=== PATIENT | male | born 1940 | race Caucasian/White ===

== ENCOUNTER → 2016-10-15 | Outpatient (CLI) | payer MEDICARE, BC | END | disposition home or self-care (01) | LOC: LABPAT 15:14 | PROVIDERS: ATTEND Orthopaedic Surgery | DX: Z01.812 Encounter for preprocedural laboratory examination (principal) | CPT/HCPCS: 87070 ==

== ENCOUNTER 2016-10-20 05:47 | Inpatient (IN) | payer MEDICARE, BC ==
--- NOTE | 2016-10-19 14:43 | HP ---
Surgery scheduled for 10/20/2016. Farhad Lott is a 76-year-old patient seen with symptomatic left hip osteoarthritis. After having treatment options discussed, he elected to proceed with direct anterior left total hip arthroplasty. Consent was obtained. Medical clearance was provided by Dr. Torres. PAST MEDICAL HISTORY: Hypertension. PAST SURGICAL HISTORY: Noncontributory. DAILY MEDICATIONS: Clonidine. ALLERGIES: None. SOCIAL HISTORY: Patient denies tobacco use. PHYSICAL EVALUATION OF THE LEFT HIP: There is very limited range of motion and severe pain. Diffuse weakness about the hip girdle. Diffuse tenderness about the hip girdle. Positive hip impingement sign. Distal neurovascular exam is intact. The left lower extremity is approximately 1 1/2 inches shorter than the right. Radiographs of the left hip reveal severe osteoarthritic changes. IMPRESSION: Left hip osteoarthritis. PLAN: Direct anterior left total hip arthroplasty. DANDY
[~2016-10-20 05:47] MED LIST: ACETAMINOPHEN TAB 500 MG TAB PO ONE; MELOXICAM 7.5 MG TAB PO ONE; Pre Op ABX Message 1 EACH MISC MISCELLANE ONE; TRANEXAMIC ACID 1,000 MG in SODIUM CHLORIDE 0.9% 100 ML IVPB ONE; ceFAZolin 2 GM in SODIUM CHLORIDE 0.9% 100 ML IVPB ONE
[2016-10-20] MEDS ORDERED: LACTATED RINGERS 1,000 ML IV SCH (06:32)
[2016-10-20] MEDS ORDERED: HYDROmorphone 1 MG/ML 1 ML SYRINGE IVP PRN ×4 (06:32→09:29)
[2016-10-20] MEDS ORDERED: ONDANSETRON 4 MG/2 ML VIAL IVP ONE (06:32)
[2016-10-20] MEDS ORDERED: DEXAMETHASONE SOD PHOSPHATE 10 MG/ML 1 ML VIAL IV ONE (06:32)
[2016-10-20] MEDS ORDERED: LIDOCAINE 1% 20 ML VIAL (10MG/ML) FOR IV START INTRADERMA ONE (06:49)
[2016-10-20] MEDS ORDERED: ROPIVACAINE 246.25 MG, EPINEPHrine 0.5 MG, KETOROLAC 30 MG, cloNIDine HCL/PF 80 MCG, WA... MISCELLANE ONE ×5 (07:19)
[2016-10-20] MEDS ORDERED: MIDAZOLAM 2 MG/2 ML VIAL ONE (07:22)
[2016-10-20] MEDS ORDERED: SODIUM CHLORIDE 0.9% 100 ML BAG ONE (07:22)
[2016-10-20] MEDS ORDERED: LIDOCAINE 1% INJ 10MG/ML (20 ML MDV) ONE (07:22)
[2016-10-20] MEDS ORDERED: TRANEXAMIC ACID 1,000 MG/10 ML VIAL ONE (07:22)
[2016-10-20] MEDS ORDERED: ceFAZolin 3,000 MG in SODIUM CHLORIDE 0.9% IRRIGATIO 3,000 ML IRRIGATION ONE (07:22)
[2016-10-20] MEDS ORDERED: PROPOFOL 10 MG/ML 20 ML VIAL IV ONE (07:22)
[2016-10-20] MEDS ORDERED: ePHEDrine SULFATE/0.9% NACL/PF 50 MG/5 ML SYRINGE IV ONE (07:22)
[2016-10-20] MEDS ORDERED: LACTATED RINGERS 1,000 ML IV ONE (09:17)
[2016-10-20] MEDS ORDERED: ONDANSETRON 4 MG/2 ML VIAL IVP PRN (09:29)
[2016-10-20] MEDS ORDERED: NALOXONE 0.4 MG/ML 1 ML VIAL IV PRN (09:29)
[2016-10-20] MEDS ORDERED: HYDROcodone/APAP 7.5-325MG 1 EACH TAB PO PRN (09:29)
[2016-10-20] MEDS ORDERED: hydrOXYzine PAMOATE 25 MG CAP PO PRN (09:29)
--- NOTE | 2016-10-20 09:29 | P.OP ---
Date of Procedure: 10/20/16 Preoperative Diagnosis: Left hip osteoarthritis Postoperative Diagnosis: Left hip osteoarthritis Procedure(s) Performed: Direct anterior left total hip arthroplasty Implants: 1. Depuy Corail cementless femoral stem K a size 14 standard collar 2. Depuy pinnacle acetabular shell multi hole 56 mm press-fit 3. Depuy polyethylene acetabular liner +4 neutral 36 mm ID 56 mm OD 4. Biolox delta ceramic femoral head +1.5 36 mm Anesthesia: local, spinal Surgeon: Juan Quiroga Web Content Producer #1: Frantz Garcia Estimated Blood Loss (ml): 200 Pathology: other (Femoral head) Condition: stable Disposition: PACU Indications for Procedure: 76-year-old patient seen with synthetic left hip osteoarthritis. After treatment options were discussed, he elected to proceed with total hip arthroplasty. Operative Findings: See description of procedure Description of Procedure: The patient was taken to the operative suite. Patient underwent a final anesthetic by the department of anesthesia. Patient was then transferred to the [place] table. Patient was given preoperative IV antibiotics and TXA. Both lower extremities were placed in standard leg spars. The hip was then prepped and draped in the normal sterile orthopedic fashion. A standard anterior incision was made beginning 3 cm lateral and 1 cm distal to the ASIS extending 10 cm. Dissection was then carried down through the subcutaneous soft tissues down to the fascia overlying the tensor fascia edna. An incision was now made through the fascia. Careful dissection was taken down exposing the tensor fascia edna muscle. A Cobra retractor was now placed along the medial femoral neck and a second one along the lateral femoral neck. The venous circumflex vessels were now identified, cauterized and clipped. We identified the anterior hip capsule. An incision was made through the hip capsule along the lateral border. Tag sutures were then placed along the anterior capsule and lateral capsule. We then performed a capsulotomy. Retractors were now placed around the femoral neck itself. A Cobra retractor was now placed along the anterior acetabulum. Good exposure was now noted of the femoral head/neck complex. Residual labrum was debrided out. We placed the extremity into 3 turns of fine traction. We were then able to introduce a skid in between the femoral head and acetabulum. A placed a awl into the femoral head. We took 2 turns of traction off the extremity. Rotation was now released. The femoral head was then dislocated without difficulty. Additional releasing was performed of the capsule. The head was then reduced. All traction was released. A femoral neck cut was now made with a sagittal saw. It was completed with an osteotome at the lateral neck area. The femoral head was now removed without difficulty. The extremity was now rotated to 60 of external rotation. It was locked in position. Residual labrum was now debrided out. Serial reaming was performed of the acetabulum. Once we reached the appropriate size and a trial was position and fit nicely. The appropriate size was now chosen opened and made available. The wound was irrigated with pulse lavage mechanical irrigation. The acetabular cup was introduced into the acetabulum without difficulty. The C-arm/fluoroscopy was now brought into the operative field. We made sure we had a true AP pelvic view. We now under direct C-arm/fluoroscopy introduced into the acetabular component with appropriate version and inclination. It was well seated and stable. I did insert one screw to enhance the stability. The C-arm was pulled back. An appropriate liner was introduced and clicked into position. It was felt to be stable. At this point retractors were removed. The extremity was now placed into 120 external rotation with no traction. The leg was now dropped to the ground and adducted. Appropriate retractors were now positioned along the proximal femur. We also placed our femoral look into position. Additional capsular releasing was performed to gain access to the proximal femur. We now used a box osteotome. A canal finder was now utilized. Serial broaching was now performed until we reached the appropriate size with good overall rotational stability. Appropriate calcar planing was performed. A trial head/ neck was placed into position. The hip was now reduced. The C-arm/fluoroscopy was brought back into the operative field. A spot film was obtained of the nonoperative hip. A spot film was obtained of the trial components. Overlays were performed, we noted good overall alignment and positioning for determining leg length. The C-arm/fluoroscopy was pulled back. Retractors were repositioned and the hip was dislocated. The leg was again taken down to the ground and adducted. Appropriate retractors were repositioned as well as the femoral hook. All trial components were removed. The wound was irrigated with pulse lavage mechanical irrigation. The femoral implant was opened along with the femoral head. The femoral implant was introduced with good purchase and fixation noted. The femoral head was introduced with good positioning and fixation noted. Retractors were now removed. The hip was now reduced. There appeared be good positioning of the hip. Spot films were obtained to document this. Bipolar cautery had been utilized intermittently through the procedure for hemostasis. The wound was irrigated copiously with pulse lavage mechanical irrigation. A second gram of TXA was given. The fascia was repaired with Vicryl suture. The subcutaneous soft tissues were repaired in layers with Vicryl suture. The skin was approximated with pernio/Dermabond. Sterile dressings were applied. Patient was then awakened, transferred to a bed and taken to recovery in stable condition. Bi ZAVALA assisted with the procedure.
--- NOTE | 2016-10-20 10:52 | XR ---
Limited left hip HISTORY: Open reduction internal fixation Intraoperative C-arm image documents the procedure
--- NOTE | 2016-10-20 10:53 | FL ---
Fluoroscopy HISTORY: Hip replacement 51 seconds fluoroscopy time supplied to the referring clinician. 1 intraoperative C-arm images docum ent the procedure. See dictated report from orthopedic surgery.
[2016-10-20 10:58] VITALS: BMI 22.6
[2016-10-20] MEDS: LACTATED RINGERS 1,000 ML IV SCH (11:02)
[2016-10-20] MEDS: HYDROcodone/APAP 7.5-325MG 1 EACH TAB PO PRN ×2 (11:43→18:57)
[2016-10-20] MEDS: traMADol 50 MG TAB PO SCH ×3 (12:36→21:40)
[2016-10-20] MEDS: ceFAZolin 2 GM in SODIUM CHLORIDE 0.9% 100 ML IVPB SCH (15:25)
[2016-10-20] MEDS ORDERED: SENNOSIDES-DOCUSATE SODIUM 1 EACH TAB PO SCH (21:00)
[2016-10-21] MEDS: ceFAZolin 2 GM in SODIUM CHLORIDE 0.9% 100 ML IVPB SCH (00:07)
--- NOTE | 2016-10-21 01:46 | P.CONS ---
History of Present Illness - Reason for Consult Consult date: 10/20/16 Medical management of hypertension and other medical problems - Chief Complaint Status post left total hip arthroplasty - History of Present Illness Patient is a 76-year-old male with a known history of hypertension, gout and osteoarthritis was admitted to the hospital for elective left total hip arthroplasty. Patient underwent procedure well. Currently denied any complaints of chest pain or short of breath. patient was able to ablate it walk this morning. Review of Systems CONSTITUTIONAL: No fever, no malaise, no fatigue. HEENT: No recent visual problems or hearing problems. Denied any sore throat. CARDIOVASCULAR: No chest pain, orthopnea, PND, no palpitations, no syncope. PULMONARY: , no hemoptysis. GASTROINTESTINAL: No diarrhea, no nausea, no vomiting, no abdominal pain. Normoactive bowel sounds. NEUROLOGICAL: No headaches, no weakness, no numbness. HEMATOLOGICAL: Denies any bleeding or petechiae. GENITOURINARY: Denies any burning micturition, frequency, or urgency. MUSCULOSKELETAL/RHEUMATOLOGICAL: Denies any joint pain, swelling, or any muscle pain. ENDOCRINE: Denies any polyuria or polydipsia. The rest of the 14-point review of systems is negative. Past Medical History Past Medical History: CVA/TIA, Hypertension, Renal Disease Additional Past Medical History / Comment(s): HISTORY OF KIDNEY CANCER, RIGHT KIDNEY REMOVED, GOUT History of Any Multi-Drug Resistant Organisms: None Reported Additional Past Surgical History / Comment(s): RIGHT NEPHRECTOMY Past Anesthesia/Blood Transfusion Reactions: No Reported Reaction Past Psychological History: No Psychological Hx Reported Smoking Status: Never smoker - Past Family History Father Family Medical History: CVA/TIA Medications and Allergies Home Medications Medication Instructions Recorded Confirmed Type Atenolol/Chlorthalidone [Tenoretic 1 tab PO DAILY 10/20/16 10/20/16 History 50 Tablet] Colchicine 0.6 mg PO DAILY PRN 10/20/16 10/20/16 History Allergies Allergy/AdvReac Type Severity Reaction Status Date / Time No Known Allergies Allergy Verified 10/20/16 10:59 Physical Exam Vitals: Vital Signs Temp Pulse Pulse Pulse Resp BP Pulse Ox 10/20/16 14:26 97.5 F L 65 16 147/95 96 10/20/16 12:34 98.1 F 65 16 166/91 99 10/20/16 12:30 65 16 148/91 98 10/20/16 12:15 54 L 16 152/87 98 10/20/16 12:00 62 16 172/103 97 10/20/16 11:45 58 L 16 164/97 96 10/20/16 11:30 52 L 16 174/98 97 10/20/16 11:15 55 L 16 171/88 97 10/20/16 11:02 55 L 16 177/81 97 10/20/16 10:45 98 F 54 L 16 154/88 97 10/20/16 10:35 58 L 16 126/55 97 10/20/16 10:18 58 L 16 136/79 97 10/20/16 10:02 60 16 136/75 96 10/20/16 09:47 97 F L 60 16 136/76 96 10/20/16 06:28 97.8 F 55 L 16 189/102 Intake and Output 10/20/16 10/20/16 10/20/16 06:59 14:59 22:59 Intake Total 100 1256 Output Total 520 Balance 100 736 Intake: IV 100 1256 Lactated Ringers 1,000 ml 200 @ 50 mls/hr IV .Q20H [facility] Rx#:[id number] Output: Urine 320 Estimated Blood Loss 200 Other: Voiding Method Indwelling Catheter Weight 73.8 kg 73.8 kg Patient Weight 10/21/16 06:59 Weight 73.8 kg PHYSICAL EXAMINATION: Patient is lying in the bed comfortably, no acute distress , awake alert and oriented.. HEENT: Normocephalic. Neck is supple. Pupils reactive. Nostrils clear. Oral cavity is moist. Ears reveal no drainage. Neck reveals no JVD, carotid bruits, or thyromegaly. CHEST EXAMINATION: Trachea is central. Symmetrical expansion. Lung quijano clear to auscultation and percussion. CARDIAC: Normal S1, S2 with no gallops. No murmurs ABDOMEN: Soft. Bowel sounds normal. No organomegaly. No abdominal bruits. Extremities reveal no edema. Left hip wound is intact no bleeding noted Neurologically awake, alert, oriented x3 with well-coordinated movements. Assessment and Plan Plan: #1 status post left hip arthroplasty postop day 0 #2 hypertension. Controlled. Patient takes hydrochlorothiazide and atenolol at home #3 gout stable when necessary colchicine 4 DVT prophylaxis Plan: Patient will be continued on pain management and bowel regimen. Incentive spirometry and ambulation. Continue with the due to reflexes. Blood pressure medications can be started from tomorrow. We will check CBC and a BMP tomorrow morning and further recommendations based on the clinical course.
[2016-10-21] MEDS: HYDROcodone/APAP 7.5-325MG 1 EACH TAB PO PRN ×2 (05:39→14:38)
[2016-10-21] MEDS: LACTATED RINGERS 1,000 ML IV SCH (07:28)
[2016-10-21 07:40] VITALS: BP 135/75; PULSE 60; RESP 20; TEMP 97
[2016-10-21] MEDS: traMADol 50 MG TAB PO SCH ×2 (08:12→12:20)
[2016-10-21 08:39] LABS: Basophils # (A) 0.1 k/uL (0-0.2); Basophils % (A) 1 %; CH 32.4; CHCM 34.6; Eosinophils # (A) 0.1 k/uL (0-0.7); Eosinophils % (A) 1 %; HCT 39.5 % (39.0-53.0); HDW 2.74; HGB 13.1 gm/dL (13.0-17.5); Luc % (Auto) 2; Lymphocytes % (A) 18 %; MCH 31.3 pg (25.0-35.0); MCHC 33.2 g/dL (31.0-37.0); MCV 94.3 fL (80.0-100.0); Mean Platelet Volume 7.5; Monocytes # (A) 0.6 k/uL (0-1.0); Monocytes % (A) 6 %; Neutrophils # (A) 7.9 k/uL (1.3-7.7); Neutrophils % (A) 73 %; RBC 4.19 m/uL (4.30-5.90); RDW 14.3 % (11.5-15.5); WBC 10.9 k/uL (3.8-10.6)
[2016-10-21] MEDS ORDERED: ENOXAPARIN 40 MG/0.4 ML SYRINGE SQ SCH (09:00)
[2016-10-21] MEDS ORDERED: FAMOTIDINE 20 MG TAB PO SCH (09:00)
[2016-10-21 09:14] LABS: Potassium 3.8 mmol/L (3.5-5.1)
--- NOTE | 2016-10-21 11:03 | P.PN ---
Subjective Principal diagnosis: Status post left total hip arthroplasty Patient is seen today resting in his hospital chair, he appears to be in no acute distress. His pain is well-controlled. He is ambulating well with physical therapy. Urinary catheters been discontinued. He denies any headaches , lightheadedness, chest pain, shortness of breath. Objective - Vital Signs Vital signs: Vital Signs Temp 97.0 F L 10/21/16 07:00 Pulse 60 10/21/16 07:00 Resp 20 10/21/16 07:00 BP 135/75 10/21/16 07:00 Pulse Ox 97 10/21/16 07:00 Intake & Output 10/20/16 10/21/16 10/21/16 18:59 06:59 18:59 Intake Total 1256 700 Output Total 520 1200 Balance 736 700 -1200 Weight 73.8 kg Intake: IV 1256 500 Lactated Ringers 1,000 ml 200 500 @ 50 mls/hr IV .Q20H [facility] Rx#:[id number] Intake, IV Titration 200 Amount ceFAZolin 2 gm In Sodium 200 Chloride 0.9% 100 ml @ 100 mls/hr IVPB Q8HR [facility] Rx#:[id number] Output: Urine 320 1200 Estimated Blood Loss 200 Other: Voiding Method Indwelling Catheter Indwelling Catheter Indwelling Catheter - Exam Left lower extremity: Incision is clean, dry, and intact. Minimal soft tissue swelling present in the hip. Calf soft, no tenderness with palpation. Plantar flexion, dorsiflexion, EHL, FHL are intact. Sensory exam to light touch throughout the leg is intact, dorsal pedis pulses 2+. - Labs CBC & Chem 7: 10/21/16 08:05 10/21/16 08:05 Labs: Abnormal Lab Results - Last 24 Hours (Table) 10/21/16 10/21/16 Range/Units 08:05 08:05 WBC 10.9 H (3.8-10.6) k/uL RBC 4.19 L (4.30-5.90) m/uL Neutrophils # 7.9 H (1.3-7.7) k/uL BUN 37 H (9-20) mg/dL Creatinine 1.86 H (0.66-1.25) mg/dL Assessment and Plan Plan: Assessment: 1. Postop day #1 status post left total hip arthroplasty Plan: 1. Pain control, continue use of current medication 2. Continue work therapy 3. Daily dressing changes 4. GI and DVT prophylaxis, continue subcu medication during inpatient stay 5. Medical recommendations 6. Discharge planning: Patient will be discharged home today Time with Patient: Less than 30
--- NOTE | 2016-10-21 11:07 | P.DS ---
Providers Date of admission: 10/20/16 05:47 Expected date of discharge: 10/21/16 Attending physician: Juan Quiroga Consults: 10/20/16 09:29 Consult Physician Routine Consulting Provider: Ismael Torres Reason/Comments: Medical management Do you want consulting provider notified?: Yes 10/20/16 10:31 Consult Physician Routine Consulting Provider: Joshua Cullen Consult Reason/Comments: Medical Management Do you want consulting provider notified?: Yes Primary care physician: Ismael Torres Hospital Course: Date of admission: 10/20/2016 Date of discharge: 10/21/2016 Admission diagnosis: Status post left total hip arthroplasty Discharge diagnosis: Same Attending physician: Dr. Quiroga Surgical procedures: Left total hip arthroplasty Brief history: Patient is a 76-year-old male with a history of progressive primary left hip osteoarthritis. At this point patient has failed conservative treatment measures and has opted to proceed with a elective left total hip arthroplasty. Hospital course: Details of patient's surgery can be found in operative report. Patient tolerated the procedure well and was subsequently transported to orthopedic floor. Patient's orthopeidc and medical care was provided daily. Patient had daily laboratory tests performed for evaluation of overall blood counts. Patient had daily physical therapy to include strengthening range of motion as well as education with walker ambulation. Patient was treated with Lovenox for their postoperative DVT prophylaxis during their inpatient stay. Patient was noted to have a relatively uneventful postoperative course. Patient reported satisfactory pain control with oral pain medications by postoperative day 0. Patient showed satisfactory progress with physical therapy. Patient moved steadily through the program and had no difficulty meeting the goals by postoperative day 1. Given patient's otherwise satisfactory course and having met physical therapy goals, plan is to discharge patient [home] on postoperative day 1. Discharge condition/disposition: Patient will be discharged [home] in stable condition. Discharge medications: Instructions are given on resumption of patient's normal daily medications per primary care recommendation, in addition patient will be prescribed [place] 7.5 mg/325 mg, Pepcid 20 mg, Colace 100 mg, aspirin 325 mg. Discharge instructions: 1. Wound care and infection precautions, [keep incision dry and covered while showering], no lotions, creams, moisturizers. No soaking, tubs, pools, hottubs. Do not scrub over the incision. 2. Weight-bear [as tolerated] with walker / cane until follow-up. 3. Ice and elevate when necessary. Do not exceed 20 minutes per hour with ice pack. 4. Utilize compression sleeve until seen at first follow up appointment. 5. Visiting nursing care. 6. Home physical therapy. 7. Pain meds and anticoagulants per prescription. 8. Pain medication has potential to cause constipation. Increase oral fluid and fiber intake. Contact primary care provider if you have not had a bowel movement within 48 hours after discharge 9. No anti-inflammatory medication until discussed at first post operative visit, this including Motrin, Aleve, Mobic, Diclofenac. 10. Follow up in office at 2 weeks postop with Washington Garcia PA-C 11. Follow up with your primary care doctor 7-10 days after discharge. 12. Contact [facility] with any questions, . Procedures: Left total hip arthroplasty Patient Condition at Discharge: Good Plan - Discharge Summary New Discharge Prescriptions: New Aspirin 325 mg PO BID #60 tab Docusate [Colace] 100 mg PO DAILY #30 capsule Famotidine [Pepcid] 20 mg PO DAILY #30 tablet HYDROcodone/APAP 7.5-325MG [[place] 7.5] 1 - 2 each PO Q6HR PRN #60 tab PRN Reason: Pain No Action Atenolol/Chlorthalidone [Tenoretic 50 Tablet] 1 tab PO DAILY Colchicine 0.6 mg PO DAILY PRN PRN Reason: gout symptoms Discharge Medication List Atenolol/Chlorthalidone [Tenoretic 50 Tablet] 1 tab PO DAILY 10/20/16 [History] Colchicine 0.6 mg PO DAILY PRN 10/20/16 [History] Aspirin 325 mg PO BID #60 tab 10/21/16 [Rx] Docusate [Colace] 100 mg PO DAILY #30 capsule 10/21/16 [Rx] Famotidine [Pepcid] 20 mg PO DAILY #30 tablet 10/21/16 [Rx] HYDROcodone/APAP 7.5-325MG [[place] 7.5] 1 - 2 each PO Q6HR PRN #60 tab 10/21/16 [ Rx] Follow up Appointment(s)/Referral(s): Frantz Garcia PAC [PHYSICIAN CERTIFIED PROFESSIONAL CODER] - 2 Weeks Activity/Diet/Wound Care/Special Instructions: Orthopedic Discharge Instructions: 1. Wound care and infection precautions, keep incision dry and covered while showering, no lotions, creams, moisturizers. No soaking, pools, hot tubs. Do not scrub over incision. 2. Weight-bear as tolerated with walker / cane until follow-up. 3. Ice and elevate when necessary. Do not exceed 20 minutes per hour with ice pack. 4. Utilize compression sleeve until seen at first follow up appointment. 5. Visiting nursing care. 6. Home physical therapy. 7. Pain meds and anticoagulants per prescription. 8. Pain medication has potential to cause constipation. Increase oral fluid and fiber intake. Contact primary care provider if you have not had a bowel movement within 48 hours after discharge. 9. No anti-inflammatory medication until discussed at first post operative visit, this including Motrin, Aleve, Mobic, Diclofenac. 10. Follow up in office at 2 weeks postop with Washington Garcia PA-C 11. Follow up with your primary care doctor 7-10 days after discharge. 12. Contact [facility] with any questions, . Discharge Disposition: HOME WITH HOME HEALTH SERVICES
[2016-10-21] MEDS ORDERED: MULTIVITAMINS, THERA 1 EACH TAB PO SCH (12:00)
--- NOTE | 2016-10-21 21:55 | P.PN ---
Subjective Principal diagnosis: Status post left total hip arthroplasty Patient is a 76-year-old male with a known history of hypertension, gout and osteoarthritis was admitted to the hospital for elective left total hip arthroplasty. Patient underwent procedure well. Currently denied any complaints of chest pain or short of breath. patient was able to ablate it walk this morning. Patient denied any complaints of chest pain or short of breath today. No acute overnight issues. Patient is on minimal support. Patient is being discharged home today. No fever no chills. Objective - Vital Signs Vital signs: Vital Signs Temp 97.0 F L 10/21/16 07:00 Pulse 60 10/21/16 07:00 Resp 20 10/21/16 07:00 BP 135/75 10/21/16 07:00 Pulse Ox 97 10/21/16 07:00 Intake & Output 10/21/16 10/21/16 10/22/16 06:59 18:59 06:59 Intake Total 700 Output Total 1700 Balance 700 -1700 Intake: IV 500 Lactated Ringers 1,000 ml 500 @ 50 mls/hr IV .Q20H [facility] Rx#:[id number] Intake, IV Titration 200 Amount ceFAZolin 2 gm In Sodium 200 Chloride 0.9% 100 ml @ 100 mls/hr IVPB Q8HR [facility] Rx#:[id number] Output: Urine 1700 Other: Voiding Method Indwelling Catheter Indwelling Catheter - Exam PHYSICAL EXAMINATION: Patient is lying in the bed comfortably, no acute distress , awake alert and oriented.. HEENT: Normocephalic. Neck is supple. Pupils reactive. Nostrils clear. Oral cavity is moist. Ears reveal no drainage. Neck reveals no JVD, carotid bruits, or thyromegaly. CHEST EXAMINATION: Trachea is central. Symmetrical expansion. Lung quijano clear to auscultation and percussion. CARDIAC: Normal S1, S2 with no gallops. No murmurs ABDOMEN: Soft. Bowel sounds normal. No organomegaly. No abdominal bruits. Extremities reveal no edema. Neurologically awake, alert, oriented x3 with well-coordinated movements. - Labs CBC & Chem 7: 10/21/16 08:05 10/21/16 08:05 Labs: Abnormal Lab Results - Last 24 Hours (Table) 10/21/16 10/21/16 Range/Units 08:05 08:05 WBC 10.9 H (3.8-10.6) k/uL RBC 4.19 L (4.30-5.90) m/uL Neutrophils # 7.9 H (1.3-7.7) k/uL BUN 37 H (9-20) mg/dL Creatinine 1.86 H (0.66-1.25) mg/dL Assessment and Plan Plan: #1 status post left hip arthroplasty postop day 1 #2 hypertension. Controlled. Patient takes hydrochlorothiazide and atenolol at home #3 gout stable when necessary colchicine 4 DVT prophylaxis Plan: Patient will be continued on pain management and bowel regimen. Incentive spirometry and ambulation. Continue with the due to reflexes. Blood pressure medications can be started upon discharge. Patient is stable to be discharged home
== END 2016-10-21 14:40 | disposition home health service (06) | DRG 470 ==
LOC: 2ORMAIN 05:47 → 3SUR 09:57
PROVIDERS: ADMIT Orthopaedic Surgery; ATTEND Orthopaedic Surgery
PROC: 0SRB04A Replacement of Left Hip Joint with Ceramic on Polyethylene Synthetic Substitute, Uncemented, Open Approach (ICD-10-PCS; principal; 2016-10-20 07:30)
DX: M16.12 Unilateral primary osteoarthritis, left hip (principal); I10 Essential (primary) hypertension; M10.9 Gout, unspecified; R53.1 Weakness; Z85.528 Personal history of other malignant neoplasm of kidney; Z86.73 Personal history of transient ischemic attack (TIA), and cerebral infarction without residual deficits; Z79.899 Other long term (current) drug therapy; Z82.3 Family history of stroke; Z90.5 Acquired absence of kidney; Z87.448 Personal history of other diseases of urinary system
CPT/HCPCS: 73501; 80048; 85025; 86850; 86900; 86901; 88300

== ENCOUNTER → 2018-03-26 | Outpatient (CLI) | payer MEDICARE, BC ==
[2018-03-26 13:45] LABS: Basophils # (A) 0.1 k/uL (0-0.2); Basophils % (A) 1 %; Eosinophils # (A) 0.2 k/uL (0-0.7); Eosinophils % (A) 3 %; HCT 49.9 % (39.0-53.0); HGB 16.2 gm/dL (13.0-17.5); Lymphocytes # (A) 1.8 k/uL (1.0-4.8); Lymphocytes % (A) 25 %; MCH 30.1 pg (25.0-35.0); MCHC 32.4 g/dL (31.0-37.0); Mean Platelet Volume 6.3; Monocytes # (A) 0.4 k/uL (0-1.0); Monocytes % (A) 5 %; Neutrophils # (A) 4.6 k/uL (1.3-7.7); Neutrophils % (A) 65 %; Platelet Count 253 k/uL (150-450); RBC 5.37 m/uL (4.30-5.90); RDW 13.4 % (11.5-15.5); WBC 7.2 k/uL (3.8-10.6)
[2018-03-26 13:57] LABS: Prothrombin Time 11.1 sec (9.0-12.0)
[2018-03-26 13:59] LABS: Potassium 4.7 mmol/L (3.5-5.1)
== END | disposition home or self-care (01) ==
LOC: LABPAT 13:09
PROVIDERS: ATTEND Orthopaedic Surgery
DX: Z01.818 Encounter for other preprocedural examination (principal)
CPT/HCPCS: 80051; 85025; 85610; 87070; 93005

== ENCOUNTER → 2018-04-13 | Outpatient (CLI) | payer MEDICARE, BC | END | disposition home or self-care (01) | LOC: LABPAT 08:11 | PROVIDERS: ATTEND Orthopaedic Surgery | DX: Z01.812 Encounter for preprocedural laboratory examination (principal) | CPT/HCPCS: 36415; 86850; 86900; 86901 ==

== ENCOUNTER 2018-04-19 10:05 | Inpatient (IN) | payer MEDICARE, BC ==
--- NOTE | 2018-04-18 14:18 | HP ---
HISTORY AND PHYSICAL DATE OF SERVICE: 04/19/2018 HISTORY OF PRESENT ILLNESS: Farhad Lott is a 77-year-old patient seen with symptomatic right hip osteoarthritis. We discussed options. He elected to proceed with right total hip arthroplasty. Consent obtained. Medical clearance was provided by Dr. Ismael Torres. PAST MEDICAL HISTORY: Hypertension. PAST SURGICAL HISTORY: Left total hip arthroplasty. MEDICATIONS: Clonidine. ALLERGIES: None reported. SOCIAL HISTORY: He denies tobacco use. PHYSICAL EXAMINATION: Evaluation of the right hip, there is limited range of motion with severe pain. Positive hip impingement sign. Straight leg raise negative. Distal neurovascular exam is intact. RADIOGRAPHS: Radiographs of the right hip revealed moderate to severe osteoarthritic changes. IMPRESSION: 1. Right hip osteoarthritis. 2. Hypertension. PLAN: Direct anterior right total hip arthroplasty. Surgery scheduled 04/19/2018. MMODL / IJN: [id number] /
[~2018-04-19 10:05] MED LIST changes: -ACETAMINOPHEN TAB 500 MG TAB PO ONE; +HYDROmorphone 0.5 MG/0.5 ML SYRINGE IVP PRN; +LIDOCAINE 1% 20 ML VIAL (10MG/ML) FOR IV START INTRADERMA PRN; -MELOXICAM 7.5 MG TAB PO ONE; -Pre Op ABX Message 1 EACH MISC MISCELLANE ONE; +TRANEXAMIC ACID 1,000 MG in SODIUM CHLORIDE 0.9% 50 ML IVPB ONE; -ceFAZolin 2 GM in SODIUM CHLORIDE 0.9% 100 ML IVPB ONE; +ceFAZolin IN SWFI 2 GM/20 ML SYRINGE IVP ONE
[2018-04-19] MEDS: LACTATED RINGERS 1,000 ML IV SCH ×3 (11:07→16:04)
[2018-04-19] MEDS ORDERED: hydrALAZINE HCL 20 MG/ML 1 ML VIAL IVP ONE ×2 (11:15→11:37)
[2018-04-19] MEDS: MELOXICAM 7.5 MG TAB PO ONE ×2 (11:21→15:57)
[2018-04-19] MEDS: ONDANSETRON 4 MG/2 ML VIAL IVP ONE ×2 (11:21→15:58)
[2018-04-19] MEDS: ACETAMINOPHEN TAB 500 MG TAB PO ONE ×2 (11:22→15:57)
[2018-04-19] MEDS ORDERED: ROPIVACAINE 246.25 MG, EPINEPHrine 0.5 MG, KETOROLAC 30 MG, cloNIDine HCL/PF 80 MCG, WA... MISCELLANE ONE ×5 (12:04)
[2018-04-19] MEDS ORDERED: TRANEXAMIC ACID 1,000 MG/10 ML VIAL ONE (12:44)
[2018-04-19] MEDS ORDERED: fentaNYL (PF) 50 MCG/ML 2 ML AMP ONE (12:44)
[2018-04-19] MEDS ORDERED: MIDAZOLAM 2 MG/2 ML VIAL ONE (12:44)
[2018-04-19] MEDS ORDERED: SODIUM CHLORIDE 0.9% 100 ML BAG ONE (12:44)
[2018-04-19] MEDS ORDERED: PROPOFOL 10 MG/ML 20 ML VIAL IV ONE (12:44)
[2018-04-19] MEDS ORDERED: ceFAZolin 3,000 MG in SODIUM CHLORIDE 0.9% IRRIGATIO 3,000 ML IRRIGATION ONE (13:23)
[2018-04-19] MEDS ORDERED: LACTATED RINGERS 1,000 ML IV ONE (13:55)
[2018-04-19] MEDS ORDERED: ONDANSETRON 4 MG/2 ML VIAL IVP PRN (14:37)
[2018-04-19] MEDS ORDERED: HYDROmorphone 0.5 MG/0.5 ML SYRINGE IVP PRN ×3 (14:37)
[2018-04-19] MEDS ORDERED: NALOXONE 0.4 MG/ML 1 ML VIAL IV PRN (14:37)
[2018-04-19] MEDS ORDERED: traMADol 50 MG TAB PO PRN (14:37)
--- NOTE | 2018-04-19 14:37 | P.OP ---
Date of Procedure: 04/19/18 Preoperative Diagnosis: Right hip osteoarthritis Postoperative Diagnosis: Right hip osteoarthritis Procedure(s) Performed: Direct anterior right total hip arthroplasty Implants: 1. Depuy Corail KA size 13 standard collar press-fit femoral stem 2. Depuy pinnacle acetabular shell multi hole 56 mm press-fit 3. Depuy pinnacle polyethylene acetabular liner neutral 36 mm ID 56 mm OD 4. Biolox delta ceramic femoral head 36 mm +1.5 Anesthesia: local, spinal Surgeon: Juan Quiroga Tube Wrapper #1: Frantz Garcia Estimated Blood Loss (ml): 500 Pathology: none sent (Femoral head) Condition: stable Disposition: PACU Indications for Procedure: 77-year-old patient seen with symptomatic right hip osteoarthritis. After treatment options were discussed, he elected to proceed with right total hip arthroplasty. Operative Findings: See description of procedure Description of Procedure: The patient was taken to the operative suite. Patient underwent a spinal anesthetic by the department of anesthesia. Patient was then transferred to the [place] table. Patient was given preoperative IV antibiotics and TXA. Both lower extremities were placed in standard leg spars. The hip was then prepped and draped in the normal sterile orthopedic fashion. A standard anterior incision was made beginning 3 cm lateral and 1 cm distal to the ASIS extending 10 cm. Dissection was then carried down through the subcutaneous soft tissues down to the fascia overlying the tensor fascia edna. An incision was now made through the fascia. Careful dissection was taken down exposing the tensor fascia edna muscle. A Cobra retractor was now placed along the medial femoral neck and a second one along the lateral femoral neck. The venous circumflex vessels were now identified, cauterized and clipped. We identified the anterior hip capsule. An incision was made through the hip capsule along the lateral border. I performed a partial anterior capsulectomy. Retractors were now placed around the femoral neck itself. A femoral neck cut was now made with a sagittal saw. It was completed with an osteotome at the lateral neck area. The femoral head was now removed without difficulty. The extremity was now rotated to 45 of external rotation. It was locked in position. Residual labrum was now debrided out. Serial reaming was performed of the acetabulum while Washington ZAVALA assisted holding an anterior retractor for exposure. Once we reached the appropriate size and a trial was position and fit nicely. The appropriate size was now chosen opened and made available. It was introduced into the acetabulum without difficulty. The C-arm/fluoroscopy was now brought into the operative field. We made sure we had a true AP pelvic view. We now under direct C-arm/fluoroscopy introduced into the acetabular component with appropriate version and inclination. I held the cup in appropriate position well Washington ZAVALA used a mallet to seat the acetabular component. I noted the component now to be well seated and stable. Acetabular cup introduce her was removed. The C-arm was pulled back. An appropriate liner was introduced and clicked into position. It was felt to be stable. At this point retractors were removed. The extremity was now placed into 120 external rotation with no traction. The leg was now dropped to the ground and adducted. Appropriate retractors were now positioned along the proximal femur. We also placed our femoral look into position. Additional capsular releasing was performed to gain access to the proximal femur. We now used a box osteotome. A canal finder was now utilized. Serial broaching was now performed with the assistance of Washington ZAVALA tapping the broaches down with a mallet while held the broach in appropriate rotation and position. This was done until we reached the appropriate size with good overall rotational stability. Appropriate calcar planing was performed. A trial head/neck was placed into position. The hip was now reduced. The C-arm/fluoroscopy was brought back into the operative field. A spot film was obtained of the nonoperative hip. A spot film was obtained of the trial components. Overlays were performed, we noted good overall alignment and positioning for determining leg length. The C- arm/fluoroscopy was pulled back. Retractors were repositioned and the hip was dislocated. The leg was again taken down to the ground and adducted. Appropriate retractors were repositioned as well as the femoral hook. All trial components were removed. The femoral implant was opened along with the femoral head. The femoral implant was introduced on the appropriate handle into our pre-broached area. I held the component position well Washington ZAVALA used a mallet to seat the femoral component. The femoral component was now noted to be well seated and stable.. The femoral head was introduced with good positioning and fixation noted. Retractors were now removed. The hip was now reduced. There appeared be good positioning of the hip confirmed on intraoperative fluoroscopy. Spot films were obtained to document this. A second gram of TXA was given. The deep and superficial soft tissues were infiltrated with local analgesic. Bipolar cautery had been utilized intermittently through the procedure for hemostasis. The wound was irrigated copiously with pulse lavage mechanical irrigation. The fascia was repaired with Vicryl suture. The subcutaneous soft tissues were repaired in layers with Vicryl suture. The skin was approximated with pernio/Dermabond. Sterile dressings were applied. Patient was then awakened, transferred to a bed and taken to recovery in stable condition. Washington ZAVALA assisted with the complex procedure.
--- NOTE | 2018-04-19 16:24 | P.CONS ---
History of Present Illness - Reason for Consult Consult date: 04/19/18 Consult for medical management of hypertension Requesting physician: Juan Quiroga - Chief Complaint Consult for medical management of hypertension - History of Present Illness The patient is a 77-year-old male with a past medical history of essential hypertension osteoarthritis and gout who presented and was admitted under orthopedic service and is postop day #0 status post right total hip arthroplasty secondary to severe right hip osteoarthritis. The patient reports that despite having a history of hypertension that he's been off any antihypertensive regimen in the last couple years, he denies any ongoing issues with chest pain, he denies any shortness of breath, denies headache or blurry vision. The patient reports he went his PCP to have preop clearance and that his blood pressures have been elevated at times. He currently denies any pain in his hip, denies any nausea vomiting or abdominal pain. Review of records indicates the patient has been hypertensive as high as 160/ 83. He is currently receiving LR at 80 mL an hour and is on perioperative antibiotics with cefazolin has been is currently being managed with Dilaudid and hydrocodone \ Review of Systems Pertinent positive as per HPI all other review of systems otherwise negative Past Medical History Past Medical History: Cancer, CVA/TIA, Hypertension, Prostate Disorder, Renal Disease Additional Past Medical History / Comment(s): HISTORY OF KIDNEY,bladder and prostate CANCER, GOUT, TIA 3 yrs ago-no residual effects, History of Any Multi-Drug Resistant Organisms: None Reported Past Surgical History: Joint Replacement, Prostate Surgery Additional Past Surgical History / Comment(s): RIGHT NEPHRECTOMY, left hip replacement, bladder removed for cancer/neobladder Past Anesthesia/Blood Transfusion Reactions: No Reported Reaction Smoking Status: Never smoker - Past Family History Father Family Medical History: CVA/TIA Mother Family Medical History: Cancer Medications and Allergies Home Medications Medication Instructions Recorded Confirmed Type No Known Home Medications 04/07/18 04/19/18 History Allergies Allergy/AdvReac Type Severity Reaction Status Date / Time No Known Allergies Allergy Verified 04/19/18 15:19 Physical Exam Vitals: Vital Signs Temp Pulse Pulse Resp BP BP Pulse Ox 04/19/18 15:23 67 16 157/60 98 04/19/18 15:15 61 16 157/83 99 04/19/18 15:00 67 16 160/83 98 04/19/18 14:47 97.2 F L 68 16 136/78 99 04/19/18 11:46 163/90 04/19/18 11:30 183/108 04/19/18 11:10 98.9 F 63 16 198/109 208/108 96 04/19/18 10:57 223/125 Intake and Output 04/19/18 04/19/18 04/19/18 06:59 14:59 22:59 Intake Total 1401 200 Output Total 500 Balance 901 200 Intake: IV 1401 200 Output: Estimated Blood Loss 500 Constitutional: No acute distress, conversant, pleasant Eyes: Anicteric sclerae, moist conjunctiva, no lid-lag, PERRLA ENMT: NC/AT,Oropharynx clear, no erythema, exudates Neck:Supple, FROM, no masses, or JVD, No carotid bruits; No thyromegaly Lungs: Clear to auscultation, Clear to percussion, Normal respiratory effort, no accessory muscle use Cardiovascular: Heart regular in rate and rhythm, No murmurs, gallops, or rubs no peripheral edema Abdominal: Soft Nontender, nom distended, no guarding, no rebound or rigidity, Normoactive bowel sounds No hepatomegaly, No splenomegaly, No palpable mass No abdominal wall hernia noted Skin: Normal temperature, tone, texture, turgor, No induration No subcutaneous nodules, No rash, lesions, No ulcers Extremities:No digital cyanosis No clubbing, Pedal pulses intact and symmetrical Radial pulses intact and symmetrical Normal gait and station, No calf tenderness, lateral right hip bandaged mild soft tissue swelling, dressing clean dry and intact Psychiatric: Alert and oriented to person, place and time, Appropriate affect Intact judgement Neuro: Muscles Strength 5/5 in all 4 extremities, Sensation to light touch grossly present throughout, Cranial nerves II-XII grossly intact. No focal sensory deficits Assessment and Plan (1) Essential hypertension Current Visit: Yes Status: Acute Code(s): I10 - ESSENTIAL (PRIMARY) HYPERTENSION SNOMED Code(s): 49855017 (2) Gout Current Visit: Yes Status: Acute Code(s): M10.9 - GOUT, UNSPECIFIED SNOMED Code(s): 17975857 (3) Osteoarthritis Current Visit: Yes Status: Acute Code(s): M19.90 - UNSPECIFIED OSTEOARTHRITIS, UNSPECIFIED SITE SNOMED Code(s): 208068704 (4) S/P total hip arthroplasty Current Visit: Yes Status: Acute Code(s): Z96.649 - PRESENCE OF UNSPECIFIED ARTIFICIAL HIP JOINT SNOMED Code(s): 079129398166 Plan: The patient is admitted to primary orthopedic service and is status post right hip total arthroplasty secondary to severe right hip osteoarthritis patient has a history of essential hypertension and his blood pressure is elevated today. He reports not being on any antihypertensive for the last couple years. We'll start the patient on hydrochlorothiazide 25 mg by mouth daily and continue to monitor his blood pressures. I will defer analgesic management to primary orthopedic service. We'll continue to follow his clinical course I Appreciate opportunity to be involved in ongoing care of this patient. Further questions or concerns please don't hesitate to contact the sound inpatient team CODE STATUS Full code Discussed plan of care with patient Anticipated discharge 1 day Time with Patient: Less than 30
--- NOTE | 2018-04-19 16:39 | FL ---
Fluoroscopy HISTORY: Anterior hip replacement 6 seconds fluoroscopy time supplied to the referring clinician. 1 intraoperative C-arm images docume nt the procedure. See dictated report from orthopedic surgery.
[2018-04-19 16:41] VITALS: BMI 21.2
--- NOTE | 2018-04-19 16:45 | XR ---
Right hip HISTORY: Status post right hip arthroplasty Intraoperative C-arm image documents the procedure.
[2018-04-19] MEDS: HYDROCHLOROTHIAZIDE 25 MG TAB PO SCH (16:51)
[2018-04-19] MEDS: HYDROcodone/APAP 5-325MG 1 EACH TAB PO PRN (18:34)
[2018-04-19] MEDS: ceFAZolin IN SWFI 2 GM/20 ML SYRINGE IVP SCH (20:04)
[2018-04-19] MEDS: SENNOSIDES-DOCUSATE SODIUM 1 EACH TAB PO SCH (20:04)
[2018-04-20] MEDS: HYDROcodone/APAP 5-325MG 1 EACH TAB PO PRN ×5 (02:24→23:12)
[2018-04-20] MEDS: ceFAZolin IN SWFI 2 GM/20 ML SYRINGE IVP SCH (05:30)
[2018-04-20] MEDS: FAMOTIDINE 20 MG TAB PO SCH (07:43)
[2018-04-20] MEDS: MELOXICAM 7.5 MG TAB PO SCH (07:43)
[2018-04-20] MEDS: HYDROCHLOROTHIAZIDE 25 MG TAB PO SCH (07:44)
[2018-04-20] MEDS: ENOXAPARIN 40 MG/0.4 ML SYRINGE SQ SCH (07:44)
[2018-04-20 07:57] LABS: Basophils % (A) 0 %; Eosinophils # (A) 0.1 k/uL (0-0.7); Eosinophils % (A) 1 %; HCT 42.5 % (39.0-53.0); Lymphocytes % (A) 10 %; MCH 30.8 pg (25.0-35.0); MCHC 32.9 g/dL (31.0-37.0); MCV 93.8 fL (80.0-100.0); Mean Platelet Volume 6.4; Monocytes # (A) 0.6 k/uL (0-1.0); Monocytes % (A) 7 %; Neutrophils # (A) 7.5 k/uL (1.3-7.7); Neutrophils % (A) 81 %; Platelet Count 203 k/uL (150-450); RBC 4.53 m/uL (4.30-5.90); RDW 13.2 % (11.5-15.5); WBC 9.3 k/uL (3.8-10.6)
--- NOTE | 2018-04-20 09:59 | P.PN ---
Subjective Progress Note Date: 04/20/18 Principal diagnosis: follow up for blood pressure management post Right RODRIGUE patient seen and examined, no new complaints, denies any headache chest pain trouble breathing. Tolerated by mouth intake. Passing urine. Patient reports constipation for the past 3 days. Patient reports pain is well controlled and tolerated over the right hip. Objective - Vital Signs Vital signs: Vital Signs Temp 98.4 F 04/20/18 07:00 Pulse 73 04/20/18 07:00 Resp 16 04/20/18 07:00 BP 122/77 04/20/18 07:00 Pulse Ox 96 04/20/18 07:00 Intake & Output 04/19/18 04/20/18 04/20/18 18:59 06:59 18:59 Intake Total 1601 1430 Output Total 500 Balance 1101 1430 Intake: IV 1601 Intake, IV Titration 700 Amount Lactated Ringers 1,000 ml 700 @ 70 mls/hr IV .[id number] OMAR Rx#:[id number] Oral 730 Output: Estimated Blood Loss 500 Other: # Voids 2 - Exam Constitutional: vital signs stable, Not in acute distress, pleasant, conversant Lungs: Clear to auscultation bilaterally, clear to percussion, normal respiratory effort no use of accessory muscles Cardiovascular: Regular rate and rhythm, no murmurs, no gallops, no rubs, no peripheral edema Gastrointestinal: Soft, no tenderness to palpation, no palpable hepatosplenomegally, bowel sounds positive, no abdominal wall hernias Extremities: No digital cyanosis or clubbing, peripheral pulses palpable and equal over bilateral radial arteries and dorsalis pedis artery, no calf muscle tenderness. Surgical dressing over right anterior groin and hip area clean dry and intact no ecchymosis or bruising no drainage. Distal pulses are palpable and strong over bilateral dorsalis pedal arteries Psych: Alert, oriented to place, person and time, appropriate affect, intact judgment - Labs CBC & Chem 7: 04/20/18 07:18 Assessment and Plan Assessment: 37-year-old male presented for elective right total hip arthroplasty tolerated procedure well medicine consulted for management of hypertension, patient has been diagnosed with hypertension and past however he quit taking medications due to financial reasons. He's been trying to control his blood pressure with dietary controlled Plan: Right degenerative joint disease in the hip, postoperative day 1 Tolerated procedure well Pain control and DVT prophylaxis per orthopedic recommendations Await PT/OT Hypertension, uncontrolled untreated Patient doesn't take medications due to financial reasons Patient was started on hydrochlorothiazide 25 mg daily seems like The blood pressure under better control today Recommendations is to continue hydrochlorothiazide upon discharge prescription was sent to the pharmacy. Recommendations for the patient follow up outpatient with PCP and to monitor his blood pressure regularly DVT prophylaxis per orthopedics Labs reviewed, hemoglobin stable postoperatively Patient is stable from internal medicine standpoint for discharge Thank you for allowing us the opportunity to perspective in the care of this patient
[2018-04-20] MEDS: LACTATED RINGERS 1,000 ML IV SCH ×2 (12:49→18:47)
--- NOTE | 2018-04-20 15:29 | P.PN ---
Subjective Progress Note Date: 04/20/18 Principal diagnosis: Status post right total hip arthroplasty Patient evaluated today at bedside, family is present. He is ambulating well with therapy. Denies any shortness of breath or chest pain. Objective - Vital Signs Vital signs: Vital Signs Temp 98.4 F 04/20/18 07:00 Pulse 73 04/20/18 07:00 Resp 16 04/20/18 07:40 BP 122/77 04/20/18 07:00 Pulse Ox 96 04/20/18 07:00 Intake & Output 04/19/18 04/20/18 04/20/18 18:59 06:59 18:59 Intake Total 1601 1430 599 Output Total 500 Balance 1101 1430 599 Intake: IV 1601 Intake, IV Titration 700 Amount Lactated Ringers 1,000 ml 700 @ 70 mls/hr IV .[id number] OMAR Rx#:[id number] Oral 730 599 Output: Estimated Blood Loss 500 Other: # Voids 2 - Exam Right lower extremity: Incision is clean, dry, and intact. The exofin fusion tape is in good condition. There is minimal soft tissue swelling and ecchymosis surrounding the medial and lateral aspects of the incision. Calf is soft, no tenderness with palpation. Plantar flexion, dorsiflexion, EHL, FHL are intact. Sensory exam to light touch throughout the extremity is intact, dorsal pedis pulses 2+. - Labs CBC & Chem 7: 04/20/18 07:18 Assessment and Plan Plan: Assessment: 1. Postop day #1 status post right total hip arthroplasty Plan: Pain control, continue current medication GI and DVT prophylaxis, continue current medication Wound care instructions discussed Encourage incentive spirometer Medical recommendations Plan for discharge home tomorrow Time with Patient: Less than 30
[2018-04-20] MEDS: SENNOSIDES-DOCUSATE SODIUM 1 EACH TAB PO SCH (20:21)
[2018-04-20 20:56] VITALS: TEMP 98.6
[2018-04-21] MEDS ORDERED: hydrALAZINE HCL 50 MG TAB PO STA (02:16)
[2018-04-21] MEDS ORDERED: LABETALOL 200 MG TAB PO STA (05:04)
[2018-04-21 08:16] VITALS: BP 138/77; PULSE 65; RESP 16
[2018-04-21] MEDS ORDERED: amLODIPine 10 MG TAB PO SCH (09:00)
[2018-04-21 09:47] LABS: Calcium 9.6 mg/dL (8.4-10.2)
--- NOTE | 2018-04-21 10:39 | P.PN ---
Subjective Progress Note Date: 04/21/18 Principal diagnosis: Status post right total hip arthroplasty Patient evaluated today at bedside, family is present. He is ambulating well with therapy. Denies any shortness of breath or chest pain. Objective - Vital Signs Vital signs: Vital Signs Temp 98.6 F 04/21/18 07:04 Pulse 65 04/21/18 07:04 Resp 16 04/21/18 07:04 BP 138/77 04/21/18 07:04 Pulse Ox 93 L 04/21/18 07:04 Intake & Output 04/20/18 04/21/18 04/21/18 18:59 06:59 18:59 Intake Total 599 836 Balance 599 836 Intake: Oral 599 836 Other: # Voids 1 1 - Exam Right lower extremity: Incision is clean, dry, and intact. The exofin fusion tape is in good condition. There is minimal soft tissue swelling and ecchymosis surrounding the medial and lateral aspects of the incision. Calf is soft, no tenderness with palpation. Plantar flexion, dorsiflexion, EHL, FHL are intact. Sensory exam to light touch throughout the extremity is intact, dorsal pedis pulses 2+. - Labs CBC & Chem 7: 04/20/18 07:18 04/21/18 08:55 Labs: Abnormal Lab Results - Last 24 Hours (Table) 04/21/18 Range/Units 08:55 BUN 29 H (9-20) mg/dL Creatinine 1.65 H (0.66-1.25) mg/dL Glucose 136 H (74-99) mg/dL Assessment and Plan Plan: Assessment: 1. Postop day #2 status post right total hip arthroplasty Plan: Pain control, continue current medication GI and DVT prophylaxis, aspirin 81mg bid Wound care instructions discussed Encourage incentive spirometer Medical recommendations Plan for discharge home today Time with Patient: Less than 30
[2018-04-21] MEDS: HYDROCHLOROTHIAZIDE 25 MG TAB PO SCH (10:40)
[2018-04-21] MEDS: MELOXICAM 7.5 MG TAB PO SCH (10:40)
[2018-04-21] MEDS: FAMOTIDINE 20 MG TAB PO SCH (10:40)
[2018-04-21] MEDS: ENOXAPARIN 40 MG/0.4 ML SYRINGE SQ SCH (10:41)
--- NOTE | 2018-04-21 10:42 | P.DS ---
Providers Date of admission: 04/19/18 10:28 Expected date of discharge: 04/21/18 Attending physician: Juan Quiroga Consults: 04/19/18 14:37 Consult Physician Routine Consulting Provider: Heather Castellon Consult Reason/Comments: Medical management Do you want consulting provider notified?: Yes Primary care physician: Ismael Brian [facility] Hospital Course: Date of admission: 04/19/2018 Date of discharge: 04/21/2018 Admission diagnosis: Status post direct anterior right total hip arthroplasty Discharge diagnosis: Same Attending physician: Dr. Quiroga Surgical procedures: Direct anterior right total hip arthroplasty Brief history: Patient is a 77-year-old male with a history of progressive primary right hip osteoarthritis. At this point patient has failed conservative treatment measures and has opted to proceed with a elective right total hip arthroplasty. Hospital course: Details of patient's surgery can be found in operative report. Patient tolerated the procedure well and was subsequently transported to orthopedic floor. Patient's orthopeidc and medical care was provided daily. Patient had daily laboratory tests performed for evaluation of overall blood counts. Patient had daily physical therapy to include strengthening range of motion as well as education with walker ambulation. Patient was treated with Lovenox for their postoperative DVT prophylaxis during their inpatient stay. Patient was noted to have a relatively uneventful postoperative course. Patient reported satisfactory pain control with oral pain medications by postoperative day 0. Patient showed satisfactory progress with physical therapy. Patient moved steadily through the program and had no difficulty meeting the goals by postoperative day 2. Given patient's otherwise satisfactory course and having met physical therapy goals, plan is to discharge patient home on postoperative day 2. Discharge condition/disposition: Patient will be discharged home in stable condition. Discharge medications: Instructions are given on resumption of patient's normal daily medications per primary care recommendation, in addition patient will be prescribed [place] 5 mg/325 mg, Colace 100 mg, aspirin 81 mg. Discharge instructions: 1. Wound care and infection precautions, keep incision dry and covered while showering, no lotions, creams, moisturizers. No soaking, tubs, pools, hottubs. Do not scrub over the incision. 2. Weight-bear as tolerated with walker / cane until follow-up. 3. Ice and elevate when necessary. Do not exceed 20 minutes per hour with ice pack. 4. Utilize compression sleeve until seen at first follow up appointment. 5. Visiting nursing care. 6. Home physical therapy. 7. Pain meds and anticoagulants per prescription. 8. Pain medication has potential to cause constipation. Increase oral fluid and fiber intake. Contact primary care provider if you have not had a bowel movement within 48 hours after discharge 9. No anti-inflammatory medication until discussed at first post operative visit, this including Motrin, Aleve, Mobic, Diclofenac. 10. Follow up in office at 2 weeks postop with Washington Garcia PA-C 11. Follow up with your primary care doctor 7-10 days after discharge. 12. Contact [facility] with any questions, . Procedures: Direct anterior right total hip arthroplasty Patient Condition at Discharge: Good Plan - Discharge Summary Discharge Rx Participant: No New Discharge Prescriptions: New Hydrochlorothiazide [Hydrodiuril] 25 mg PO DAILY #30 tab amLODIPine [Norvasc] 10 mg PO DAILY #30 tab Aspirin [Adult Low Dose Aspirin EC] 81 mg PO BID #60 tablet. Docyanira [Colace] 100 mg PO DAILY #30 capsule Hydrocodone/Acetaminophen [[place] 5-325] 1 - 2 each PO Q6HR PRN #40 tab PRN Reason: Pain Discharge Medication List Hydrochlorothiazide [Hydrodiuril] 25 mg PO DAILY #30 tab 04/20/18 [Rx] Aspirin [Adult Low Dose Aspirin EC] 81 mg PO BID #60 tablet. 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 Wound care and infection precautions, keep incision dry and covered while showering, no lotions, creams, moisturizers. No soaking, pools, hot tubs. Do not scrub over incision. 2. Weight-bear as tolerated with walker / cane until follow-up. 3. Ice and elevate when necessary. Do not exceed 20 minutes per hour with ice pack. 4. Utilize compression sleeve until seen at first follow up appointment. 5. Pain meds and anticoagulants per prescription. 6. Pain medication has potential to cause constipation. Increase oral fluid and fiber intake. Contact primary care provider if you have not had a bowel movement within 48 hours after discharge. 7. No anti-inflammatory medication until discussed at first post operative visit, this including Motrin, Aleve, Mobic, Diclofenac. 8. Follow up in office at 2 weeks postop with Washington Garcia PA-C 9. Follow up with your primary care doctor 7-10 days after discharge. 10. Contact [facility] with any questions, . Care Plan Goals (MU): follow up with PCP on blood pressure in 3-5 days, continue to take amlodipine and HCTz at home and monitor your blood pressure Discharge Disposition: HOME WITH HOME HEALTH SERVICES
[2018-04-21] MEDS: HYDROcodone/APAP 5-325MG 1 EACH TAB PO PRN (10:45)
--- NOTE | 2018-04-21 13:30 | P.PN ---
Subjective Progress Note Date: 04/21/18 Principal diagnosis: follow up for hypertension management post Right RODRIGUE patient seen and examined, no new complaints, denies any headache chest pain trouble breathing. Patient reports pain is well controlled and tolerated over the right hip. He was able to participate with physical therapy and did well. Patient blood pressure continues have some high readings overnight however patient asymptomatic. Patient was started on Norvasc today. Objective - Vital Signs Vital signs: Vital Signs Temp 98.6 F 04/21/18 07:04 Pulse 65 04/21/18 07:04 Resp 16 04/21/18 07:04 BP 138/77 04/21/18 07:04 Pulse Ox 93 L 04/21/18 07:04 Intake & Output 04/20/18 04/21/18 04/21/18 18:59 06:59 18:59 Intake Total 599 836 Balance 599 836 Intake: Oral 599 836 Other: # Voids 1 1 - Exam Constitutional: vital signs stable, Not in acute distress, pleasant, conversant Lungs: Clear to auscultation bilaterally, clear to percussion, normal respiratory effort no use of accessory muscles Cardiovascular: Regular rate and rhythm, no murmurs, no gallops, no rubs, no peripheral edema Gastrointestinal: Soft, no tenderness to palpation, bowel sounds positive Extremities: peripheral pulses palpable and equal over bilateral radial arteries and dorsalis pedis artery, no calf muscle tenderness. Surgical dressing over right anterior groin and hip area clean dry and intact no ecchymosis or bruising Distal pulses are palpable and strong over bilateral dorsalis pedal arteries - Labs CBC & Chem 7: 04/20/18 07:18 04/21/18 08:55 Labs: Abnormal Lab Results - Last 24 Hours (Table) 04/21/18 Range/Units 08:55 BUN 29 H (9-20) mg/dL Creatinine 1.65 H (0.66-1.25) mg/dL Glucose 136 H (74-99) mg/dL Assessment and Plan Assessment: 37-year-old male presented for elective right total hip arthroplasty tolerated procedure well medicine consulted for management of hypertension, patient has been diagnosed with hypertension and past however he quit taking medications due to financial reasons. 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
== END 2018-04-21 11:55 | disposition home health service (06) | DRG 470 ==
LOC: 2ORMAIN 10:28 → 4SSUR 15:08
PROVIDERS: ADMIT Orthopaedic Surgery; ATTEND Orthopaedic Surgery
PROC: 0SR904A Replacement of Right Hip Joint with Ceramic on Polyethylene Synthetic Substitute, Uncemented, Open Approach (ICD-10-PCS; principal; 2018-04-19 12:30)
DX: M16.11 Unilateral primary osteoarthritis, right hip (principal); I10 Essential (primary) hypertension; K59.00 Constipation, unspecified; Z90.6 Acquired absence of other parts of urinary tract; Z90.5 Acquired absence of kidney; Z96.642 Presence of left artificial hip joint; Z86.73 Personal history of transient ischemic attack (TIA), and cerebral infarction without residual deficits; Z85.46 Personal history of malignant neoplasm of prostate; Z85.51 Personal history of malignant neoplasm of bladder; Z87.39 Personal history of other diseases of the musculoskeletal system and connective tissue; Z80.9 Family history of malignant neoplasm, unspecified; Z82.3 Family history of stroke
CPT/HCPCS: 36415; 73501; 80048; 85025; 86850; 86900; 86901; 88300